=== PATIENT | male | born 1955 | race Hispanic/Latino ===

== ENCOUNTER 2018-02-07 15:02 | Outpatient (CLI) | payer OTHER | END 2018-02-07 15:03 | disposition home or self-care (01) | LOC: BICRAD 15:02 | PROVIDERS: ATTEND Internal Medicine Rheumatology | DX: M05.79 Rheumatoid arthritis with rheumatoid factor of multiple sites without organ or systems involvement (principal); L40.59 Other psoriatic arthropathy; M19.072 Primary osteoarthritis, left ankle and foot; M19.071 Primary osteoarthritis, right ankle and foot; M19.031 Primary osteoarthritis, right wrist; Z79.899 Other long term (current) drug therapy | CPT/HCPCS: 71046 ==

== ENCOUNTER 2018-05-05 13:27 | Outpatient (CLI) | payer OTHER ==
[2018-05-05 14:40] LABS: Hemoglobin 13.6 g/dL (14.0-18.0); Mean Corpuscular HGB CONC 33.3 g/dL (32.0-36.0); Mean Corpuscular Hemoglobin 32.2 pg (27.0-31.0); Mean Corpuscular Volume 96.5 fL (78.0-98.0); Mean Platelet Volume 7.4 fL (7.4-10.4); Platelet Count 252 thou/uL (130-400); RBC Distribution Width 12.3 % (11.5-14.5); Red Blood Cell (RBC) Count 4.23 mill/uL (4.70-6.10); White Blood Cell (WBC) Count 5.5 thou/uL (4.8-10.8)
[2018-05-05 15:03] LABS: Anion Gap 11 mmol/L (10-20); BUN (Urea Nitrogen) 12 mg/dL (8.4-25.7); Calc. Creatinine Clearance 0 mL/min (70-130); Calcium 9.9 mg/dL (7.8-10.44); Carbon Dioxide 27 mmol/L (23-31); Chloride 100 mmol/L (98-107); Estimated GFR-MDRD Greater than 90; Glucose 104 mg/dL (80-115); Sodium 134 mmol/L (136-145)
--- NOTE | 2018-05-07 21:18 | EKG ---
Test Reason : Blood Pressure : / mmHG Vent. Rate : 069 BPM Atrial Rate : 069 BPM P-R Int : 136 ms QRS Dur : 088 ms QT Int : 400 ms P-R-T Axes : 067 065 035 degrees QTc Int : 428 ms Normal sinus rhythm Possible Left atrial enlargement Left ventricular hypertrophy ST abnormality, possible digitalis effect Abnormal ECG No previous ECGs available Confirmed by Brie LOAIZA ([id number]) on 05/07/2018 9:18:03 PM Referred By: JENNIFER Confirmed By:Brie LOAIZA
== END 2018-05-05 13:28 | disposition home or self-care (01) ==
LOC: LABBT 13:27
PROVIDERS: ATTEND Orthopaedic Surgery
DX: Z01.818 Encounter for other preprocedural examination (principal); S83.242A Other tear of medial meniscus, current injury, left knee, initial encounter
CPT/HCPCS: 80048; 85027; 93005; 93010

== ENCOUNTER 2018-05-09 09:25 | Day surgery (SDC) | payer OTHER ==
[2018-05-05 13:45] VITALS: BMI 25.1
[2018-05-09] MEDS ORDERED: CEFAZOLIN/Water 2 GM/20 ML SYRINGE ONE (10:00)
[2018-05-09] MEDS ORDERED: Fentanyl 100 MCG/2 ML VIAL ONE ×3 (12:28→13:52)
[2018-05-09] MEDS ORDERED: Bupivacaine HCl 0.5%/Epinephrine 1:200,000/PF 30 ml Vial ONE ×2 (12:29→13:08)
[2018-05-09] MEDS ORDERED: Ondansetron HCl/PF 4 MG/2 ML Vial ONE (13:24)
[2018-05-09] MEDS ORDERED: PROPOFOL 200 MG/20 ML VIAL ONE (13:24)
--- NOTE | 2018-05-09 17:51 | OP ---
DATE OF OPERATION: 05/09/2018. PREOPERATIVE DIAGNOSIS: Tear of the posterior horn of the medial meniscus of the left knee. POSTOPERATIVE DIAGNOSIS: Tear of the posterior horn of the medial meniscus of the left knee. PROCEDURE: Arthroscopy left knee with partial medial meniscectomy. SURGEON: Adis Nieves M.D. ANESTHESIA: General. TECHNIQUE: The patient was given preoperative IV antibiotics, taken to the operating room and placed in supine position. Satisfactory general anesthesia was performed. Left lower extremity was placed in a leg iniguez and sterilely prepped and draped in usual fashion. After exsanguination, the tourni quet was raised to 300 mmHg. Knee was scoped the usual inferomedial and inferolateral portals. Upon entering the suprapatellar pouch, the patient was noted to have some scarring, which was excised wit h the shaver. The patellofemoral joint had mild fibrillation on the most distal pole of the patella. This was smoothed down with the shaver, but the remaining and majority of the articular cartilage i n the patellofemoral joint looked good. The lateral compartment and normal articular cartilage and t he lateral meniscus was thoroughly inspected and probed and was free of pathology. The anterior cruc iate ligament was completely intact. The back portion of the tibial eminence noted to have fracture that had 1 possibly 2 mm of displacement or the PCL attached, it was left in place to heal. There wa s a tear in the posterior horn of the medial meniscus and a partial medial meniscectomy was performed using a shaver and surface ArthroWand. The articular cartilage looked very good in the medial miguelina rtment. During the procedure, all the debris was irrigated out of the knee joint. The instruments w ere removed. The portals were closed using 3-0 Rapide. Knee joint was injected with 30 mL of 0.5% M arcaine with epinephrine. Sterile dressing was applied. Tourniquet was released. Leg was taken out of the leg iniguez. The patient was awakened, extubated, and transferred to recovery room in stable condition. ESTIMATED BLOOD LOSS: None. COMPLICATIONS: None. TOURNIQUET TIME: 17 minutes. FOLLOWUP: In my office in 1 week.
== END 2018-05-09 16:40 | disposition home or self-care (01) ==
LOC: SDC 09:25
PROVIDERS: ATTEND Orthopaedic Surgery
PROC: 0SBD4ZZ Excision of Left Knee Joint, Percutaneous Endoscopic Approach (ICD-10-PCS; principal; 2018-05-09)
DX: S83.242A Other tear of medial meniscus, current injury, left knee, initial encounter (principal); S82.102A Unspecified fracture of upper end of left tibia, initial encounter for closed fracture; M19.90 Unspecified osteoarthritis, unspecified site; Z79.899 Other long term (current) drug therapy; W17.2XXA Fall into hole, initial encounter
CPT/HCPCS: 96374; J0670; J2405; J2704; J3010

== ENCOUNTER 2020-10-12 08:15 | Emergency (ER) | payer OTHER | END 2020-10-12 09:07 | disposition home or self-care (01) | LOC: ERS 08:15 | DX: U07.1 COVID-19 (principal) | CPT/HCPCS: 99283 ==

== ENCOUNTER 2023-10-04 12:46 | Emergency (ER) | payer MEDICARE, OTHER ==
[2023-10-04] MEDS ORDERED: Famotidine 20 MG TAB ONE ×2 (13:23)
[2023-10-04] MEDS ORDERED: predniSONE 20 MG TAB ONE (13:23)
== END 2023-10-04 14:23 | disposition home or self-care (01) ==
LOC: ERS 12:46
DX: L50.9 Urticaria, unspecified (principal); M06.9 Rheumatoid arthritis, unspecified
CPT/HCPCS: 99283; J7512